=== PATIENT | female | born 1945 | race Caucasian/White ===

== ENCOUNTER 2020-05-27 20:34 | Emergency (ER) | payer MEDICARE, BC ==
[2020-05-27] MEDS: Bupivacaine 0.5% 30 ML SDV INJECT PRN (21:02)
[2020-05-27] MEDS: Lidocaine 1% with EPINEPHrine 1:100,000 20 ML MDV INFILT ONE (21:02)
--- NOTE | 2020-05-27 21:35 | EDM.PDOC ---
ED HPI GENERAL MEDICAL PROBLEM - General Chief Complaint: ENT Problem Stated Complaint: ABCESSED TOOTH Time Seen by Provider: 05/27/20 21:15 Source of Information: Reports: Patient History Limitations: Reports: No Limitations - History of Present Illness INITIAL COMMENTS - FREE TEXT/NARRATIVE: Patient comes emergency department today with complaints of right lower jaw pain and concerns for an abscessed tooth. This patient for the last day or so has had pain to the right lower jaw on her molar. It got much worse tonight when she was eating steak. She is concerns for an abscess in the tooth. She has had no facial swelling difficulty swallowing or eating. No fever no chills. She has not seen a dentist for this pain yet. Right Lower Tooth/Teeth Pain Score (Numeric/FACES): 2 - Related Data Allergies Allergy/AdvReac Type Severity Reaction Status Date / Time Penicillins Allergy Cannot Verified 05/27/20 20:43 Remember Home Meds: Home Meds . [No Known Home Meds] 05/27/20 [History] Past Medical History - Past Surgical History Musculoskeletal Surgical History: Reports: Joint Replacement, Other (See Below) Other Musculoskeletal Surgeries/Procedures:: bilateral knee replacements Social & Family History - Tobacco Use Smoking Status *Q: Never Smoker ED ROS ENT - Review of Systems Review Of Systems: Comprehensive ROS is negative, except as noted in HPI. ED EXAM, ENT - Physical Exam Exam: See Below Exam Limited By: Altered Mental Status General Appearance: Alert, WD/WN, No Apparent Distress Eye Exam: Bilateral Eye: EOMI, PERRL Ears: Normal External Exam, Normal TMs Nose: Normal Inspection Mouth/Throat: Normal Gums, Normal Lips, Normal Oropharynx, Dental Pain (Her dental pain is identified as tooth #30 in the right lower jaw. This is a capped tooth. There is some tenderness when I push on the tooth. There is no swelling on the medial or lateral aspect of the gums. There is no induration exudate. The under the tongue is soft. The rest of the mouth is rather unremarkable.). No: Drooling, Gum Swelling Head: Atraumatic, Normocephalic Neck: Normal Inspection, Supple. No: Lymphadenopathy (L), Lymphadenopathy (R) Respiratory/Chest: No Respiratory Distress Cardiovascular: Normal Peripheral Pulses Neurological: Alert, Oriented Psychiatric: Normal Affect, Normal Mood Skin: Warm, Dry, Intact, Normal Color Course - Vital Signs Last Recorded V/S: Last Vital Signs Temp 95.9 F L 05/27/20 20:44 Pulse 76 05/27/20 20:44 Resp 18 05/27/20 20:44 BP 136/72 05/27/20 20:44 Pulse Ox 94 L 05/27/20 20:44 - Orders/Labs/Meds Meds: Medications Discontinued Medications Generic Name Dose Route Start Last Admin Trade Name Marlo PRN Reason Stop Dose Admin Bupivacaine HCl 30 ml 05/27/20 20:59 05/27/20 21:02 Marcaine 0.5% INJECT 30 ml ASDIRECTED PRN Administration Other Clindamycin HCl 150 mg 05/27/20 21:31 05/27/20 21:41 Cleocin PO 05/27/20 21:32 150 mg ONETIME ONE Administration Clindamycin HCl 1 packet 05/27/20 21:38 05/27/20 21:41 Take Home: Clindamycin Hcl 150 Mg, 6 Cap Pack PO 05/27/20 21:39 1 packet ONETIME ONE Administration Lidocaine/Epinephrine 20 ml 05/27/20 21:00 05/27/20 21:02 Xylocaine 1% With Epinephrine 1:100,000 INFILT 05/27/20 21:01 20 ml ONETIME ONE Administration - Re-Assessments/Exams Free Text/Narrative Re-Assessment/Exam: I explained to the patient that there is no sign of abscess at this time. Although I am unable to know for sure if there is an infection so antibiotics of the drug of choice at this time. She has a history of penicillin allergy and we will place her on clindamycin for this. Offer an inferior alveolar dental block. The risk and benefits were explained to her. After her questions were answered she gave verbal consent. 1% lidocaine with epinephrine and 0.5% bupivacaine without epinephrine was mixed in a 50-50 fashion. After the landmarks were identified for an inferior alveolar block. The above mixture of medication was injected at the site verifying no blood return with approximately 3-4 mils of the solution instilled. There was no bleeding. The patient had complete pain relief and no difficulty with swallowing or other concerns following this. Important for her to see a dentist as soon as possible. Discharge instructions were explained to her she is comfortable with this plan and her questions are answered. Departure - Departure Time of Disposition: 21:35 Disposition: Home, Self-Care 01 Clinical Impression: Pain, dental - Discharge Information Referrals: PCP,None [Primary Care Provider] - Forms: ED Department Discharge Additional Instructions: Tylenol and or Ibuprofen as needed for pain. Clindamycin 150mg tab by mouth 4 times a day for the next 5 days. See a Dentist MATHIEU on friday. Soft diet Return to the ED if new or worsening symptoms. Sepsis Event Note (ED) - Evaluation Sepsis Screening Result: No Definite Risk - Assessment/Plan Assessment:: Dental Pain Inferior alveolar block. Plan: Tylenol and or Ibuprofen as needed for pain. Clindamycin 150mg tab by mouth 4 times a day for the next 5 days. See a Dentist MATHIEU on friday. Soft diet Return to the ED if new or worsening symptoms.
[2020-05-27] MEDS: Take Home: Clindamycin HCl 150 MG Cap, 6 Cap Pack PO ONE (21:41)
[2020-05-27] MEDS: Clindamycin HCl 150 MG Cap PO ONE (21:41)
== END 2020-05-27 21:46 | disposition home or self-care (01) ==
LOC: VM.ED 20:34
DX: K08.89 Other specified disorders of teeth and supporting structures (principal); Z88.0 Allergy status to penicillin
CPT/HCPCS: 64400; 99283; 99283-25; A9270-GY; J3490

== ENCOUNTER 2022-09-12 08:05 | Emergency (ER) | payer MEDICARE, BC ==
[2022-09-12 08:53] LABS: PTT,PARTIAL THROMBOPLSTIN TIME 18.7 SEC (20.5-30.9)
[2022-09-12] MEDS: Pantoprazole 40 MG in Sodium Chloride 0.9% 100 ML IV SCH (10:41)
== END 2022-09-12 11:00 | disposition short-term general hospital (02) ==
LOC: VM.ED 08:05
DX: K92.2 Gastrointestinal hemorrhage, unspecified (principal); Z88.0 Allergy status to penicillin
CPT/HCPCS: 36415; 36430; 80053; 82550; 83615; 84484; 85025; 85610; 85730; 86140; 86850; 86900; 86901; 86920; 86922; 96365; 99284; 99284-25; C9113; P9016

== ENCOUNTER 2023-10-11 16:46 | Emergency (ER) | payer OTHER, MEDICARE, BC ==
[2023-10-11] MEDS: HYDROmorphone 0.5 MG/0.5 ML Syringe IVPUSH ONE (17:04)
[2023-10-11] MEDS: ceFAZolin 1 GM Vial IVPUSH ONE (17:05)
[2023-10-11 17:46] LABS: BASOPHILS PERCENT AUTO 0.4 % (0.2-1.2); EOSINOPHILS ABSOLUTE AUTO 0.1 x10^3/uL (0.0-0.5); EOSINOPHILS PERCENT AUTO 2.3 % (0.0-4.0); HEMATOCRIT 36.5 % (33.0-47.0); HEMOGLOBIN 11.7 g/dL (12.0-16.0); IMMATURE GRAN ABSOLUTE AUTO 0.01 x10^3/uL (0.00-0.07); LYMPHOCYTES ABSOLUTE AUTO 1.4 x10^3/uL (1.0-4.8); LYMPHOCYTES PERCENT AUTO 26.7 % (25.0-50.0); MEAN CORPUSCULAR HEMOGLOBIN 29.5 pg (26.0-32.0); MEAN CORPUSCULAR HGB CONC 32.1 g/dL (32.0-36.0); MEAN CORPUSCULAR VOLUME 91.9 fL (78.0-93.0); MONOCYTES ABSOLUTE AUTO 0.6 x10^3/uL (0.0-0.8); NEUTROPHILS ABSOLUTE AUTO 3.1 x10^3/uL (1.8-7.7); NEUTROPHILS PERCENT AUTO 59.4 % (50.0-80.0); PLATELET COUNT,PLT 195 x10^3/uL (130-400); RED BLOOD CELL COUNT 3.97 x10^6/uL (4.00-5.50); WHITE BLOOD CELL COUNT,WBC 5.3 x10^3/uL (4.0-10.0)
[2023-10-11 18:08] LABS: A/G RATIO 0.97; ALANINE AMINOTRANSFERASE,ALT 27 U/L (14-59); ALKALINE PHOSPHATASE 109 U/L (46-116); ASPARTATE AMNIOTRANSFERASE,AST 16 U/L (15-37); BILIRUBIN TOTAL 0.2 mg/dL (0.2-1.0); BLOOD UREA NITROGEN,BUN 13 mg/dL (7-18); CALCIUM 8.5 mg/dL (8.5-10.1); CARBON DIOXIDE,CO2 28 mmol/L (21-32); CHLORIDE,CL 108 mmol/L (98-107); CREATININE 0.8 mg/dL (0.55-1.02); GLUCOSE RANDOM 98 mg/dL (70-99); POTASSIUM,K 3.3 mmol/L (3.5-5.1); PROTEIN TOTAL,TP 6.1 g/dL (6.4-8.2); SODIUM,NA 145 mmol/L (136-145)
[2023-10-11 18:09] LABS: LACTIC ACID 1.6 mmol/L (0.4-2.0)
[2023-10-11 18:11] LABS: ANION GAP 12.3 mmol/L (5-15); ESTIMATED GFR 76 mL/min (>=60)
== END 2023-10-11 17:51 | disposition short-term general hospital (02) ==
LOC: VM.ED 16:46
DX: S51.811A Laceration without foreign body of right forearm, initial encounter (principal); Z88.0 Allergy status to penicillin; W25.XXXA Contact with sharp glass, initial encounter
CPT/HCPCS: 36415; 73070; 80053; 83605; 85025; 96374; 96375; 99285; J0690; J1170